=== PATIENT | male | born 1965 | race Caucasian/White ===

== ENCOUNTER 2024-11-04 08:19 | Outpatient (CLI) | payer BC, SELFPAY ==
--- OUTSIDE RECORDS SUMMARY | 2024-11-04 08:25 | XMS_ITS | Data Portability ---
Author Organization [facility] [employer] [employer] Main Office Address [address] [place] [address] Assessment No assessment recorded. Plan of Treatment Reminders Order Date Submit Date Provider Last Modified By Organization Details Last Modified Time Details Appointments None recorded. Lab glycohemog lobin, total, blood [address] (Lab), [address] [place], [address], 4 08:31:37 lipid panel, serum 2023 024 [facility] (Lab), [address] [place], [address], 4 03:28:51 CMP, serum or plasma 2023 024 [facility] (Lab), [address] [place], [address], 4 03:28:51 TSH, serum or plasma [address] (Lab), [address] [place], [address], 4 08:31:37 CBC w/ auto diff [address] (Lab), [address] [place], [address], 4 08:31:37 PSA, total, serum or plasma 2023 [email or web address] (Lab), [address] [place], [address], 4 08:31:36 vitamin D, 25-hydroxy , total, serum 2023 [email or web address] (Lab), [address] [place], [address], 4 08:31:37 Referral None recorded. Procedures None recorded. Surgeries None recorded. Imaging holter monitor - 24 hrs 2024 [place] [facility] [address], [address], 14:24:08 US, echocardio gram, transthora cic, complete - Please call patient to schedule. 2024 [facility] ([facility] Call Scheduling), [address] [place], [address], 5 14:32:36 Medication Orders losartan 50 mg tablet 2024 [facility], [address], [address], 5 08:53:44 Medrol (Zoltan) 4 mg tablets in a dose pack 2023 024 [facility] [address], [address], [address], 5 08:49:28 Depo-Medro l 40 mg/mL suspension for injection 2023 024 Not available 17:00:57 Zithromax Z-Zoltan 250 mg tablet 2023 [facility]24 [email or web address], [address], [address], 4 17:00:38 Flonase Allergy Relief 50 mcg/actuat ion nasal spray,susp ension 2023 024 [facility] [address], [address], [address], 4 08:47:04 cetirizine 10 mg tablet 2023 024 [facility] [address], [address] [place] [address], [address], 4 08:48:04 amlodipine 5 mg tablet 2023 024 [facility] [address], [address] [place] [address], [address], 4 08:47:03 Myrbetriq 25 mg tablet,ext ended release 2023 024 [facility] [address], [address], [address], 4 08:31:14 lisinopril 10 mg tablet 2023 024 [facility] [address], [address], [address], 5 08:48:59 Patient TargetsNo targets recorded. Patient InstructionsNo instructions recorded. Reason for Referral None Reported. Results Created Date Observation Date Name Description Value Unit Range Abnormal Flag Note LastModifiedBy Organization Detail LastModifiedTime Result Notes None recorded. Problems Name Problem SNOMED Code Status Onset Date Resolution Date Notes Provider Name and Address Organization Details Recorded Time Acute bronchiti s 65194491 Completed 10/16/2023 LIBBY Garrison [address] [facility], [facility] [address], [place], [address] , [place] - S MD [employer] [facility] 4 09:05:30 Atopic dermatiti s 11812925 Active Not Available [facility] 3 07:03:17 Chronic low back pain 918818289 Active Not Available [facility] 3 07:03:17 Low back pain 481930199 Active Not Available [facility] 3 07:03:17 Depressiv e disorder 24438694 Active Not Available [facility] 3 07:03:17 Sinusitis 27048608 Active Not Available [facility] 3 07:03:17 Environme ntal allergy 555512808 Active Not Available [facility] 3 07:03:17 Upper respirato ry infection 57380692 Completed 10/16/2023 LIBBY Garrison [address], [place], [address] , [employer] 4 09:05:59 Hyperlipi demia 06295308 Active Not Available [facility] 3 07:03:17 Allergic rhinitis 31441900 Completed 10/16/2023 LIBBY Garrison [address], [address], [place], [address] , [facility] 4 09:05:50 Chronic rhinitis 17202645 Active Not Available [facility] 3 07:03:18 Overactiv e urinary bladder 704583688 Active 2022 Jordan Armando MD [address], [address], [place], [address] , [employer] 3 16:39:02 Acute right otitis media 785055035 Active 2022 Jordan Armando MD [address], [address], [place], [address] , [employer] 3 12:29:11 Impacted cerumen in right ear 95194818726 [address] Active 2022 Jordan Armando MD [address], [address], [place], [address] , [employer] 3 16:40:18 Essential hypertens ion 95810200 Active 2022 Jordan Armando MD [address], [address], [place], [address] , [employer] [facility] 3 16:40:50 Erectile dysfuncti on 687747491 Active 2022 Jordan Armando MD [address], [address], [place], [address] , [employer] [facility] 3 16:41:53 Eczema 78713963 Active 2022 Jordan Armando MD [address], [address], [place], [address] , [employer] [facility] 3 16:55:02 Acute otitis externa 34467069 Completed 202210/16/2023 LIBBY Garrison [address], [address], [place], [address] , [employer] [facility] 4 09:05:28 Acute sinusitis 34031385 Completed 202210/16/2023 LIBBY Garrison [address], [address], [place], [address] , [employer] [facility] 4 13:01:19 Seasonal allergic rhinitis 259334843 Active 2022 Jordan Armando MD [address], [place], [address] , [employer] [facility] 3 16:49:26 Disorder of prostate 23112490 Active 2023 LIBBY Garrison [address], [address], [place], [address] , [employer] [facility] 4 10:20:50 Vitamin D deficienc y 14907249 Active 2023 LIBBY Garrison [address], [place], [address] , [employer] [facility] 4 10:21:32 Obesity 022546480 Active 2023 LIBBY Garrison [address], [place], [address] , [employer] [facility] [address] [facility] 4 10:21:44 Acute sinusitis 33889085 Active 2023 LIBBY Garrison [address], [place], [address] , [facility] [employer] [facility] [place] [employer] 4 13:01:19 Acute otitis media 5772390 Active 2023 LIBBY Garrison [address], [place], [address] , [employer] [facility] [address] [facility] 4 08:41:16 Acute otitis media 3561334 Active 2023 LIBBY Garrison [address], [address], [place], [address] , [employer] [facility] [place] [employer] 4 08:41:20 Palpitati ons 22330028 Active 2024 LIBBY Garrison [address], [place], [address] , [employer] [facility] [address] [facility] 5 08:47:30 Heart murmur 95998862 Active 2024 LIBBY Garrison [address], [place], [address] , [employer] [facility] [address] [facility] 5 08:53:11 Problem Notes None recorded. Procedures Surgical History Date Name Laterality Status Provider Name and Address Organization Details Recorded Time 4 Cerumen Removal completed LIBBY Garrison [address], [place], [address], [facility] [employer] [facility] [address] [facility] 10/16/2023 10:36:31 3 Ear Irrigation completed Jordan Armando MD [address], [place], [address], [facility] [employer] [facility] [address] [employer] 11/08/2022 16:58:47 Imaging Results None recorded. Procedure Notes None recorded. Medical Equipment None Reported. Allergies Allergen ID Allergen Name Allergen Category Reaction Reaction Severity Criticality Documentation Date Start Date Code Code System Note Provider Name and Address Organization Details Recorded Time 42380 Substance with sulfonami de structure and antibacte rial mechanism of action (substanc e) medicatio n Not available Not available Not available 08/17/2022 18447 8003 SNOMED Not Available [facility] 3 07:13:48 38256 Product containin g penicilli n (product) medicatio n Not available Not available Not available 08/17/2022 13542 8001 SNOMED Not Available [facility] 3 07:13:48 Medications Name Sig Start Date Stop Date Status Note LastModified by Organization Details LastModified Time losartan 50 mg tablet TAKE 1 TABLET BY MOUTH ONCE DAILY DIRECTED FOR 30 DAYS active Not Available Not Available No t Available Augmentin 875 mg-125 mg tablet Take 1 tablet every 12 hours by oral route for 10 days. 04/25 completed Not Available Not Available Not Available prednisone 10 mg tablet Take by oral route 4pills daily x 3 days, 3 pills daily x 3 days , 2 pills daily x 3 days and 1 pill daily x 3 days then stop active Not Available Not Available No t Available Depo-Medrol 40 mg/mL suspension for injection Take 2 mL every day by injection route as directed for 1 day. 04/25 completed Not Available Not Available Not Available sildenafil 50 mg tablet TAKE 1 TABLET BY MOUTH NEEDED PRIOR TO INTERCOUR SE 10/15 completed Not Available Not Available Not Available cetirizine 10 mg tablet TAKE 1 TABLET BY MOUTH ONCE DAILY DIRECTED active Not Available Not Available No t Available oxybutynin chloride ER 10 mg tablet,exte nded release 24 hr take 1 tablet by mouth daily active Not Available Not Available No t Available azithromyci n 250 mg tablet TAKE 2 TABLETS BY MOUTH ON DAY 1, AND THEN TAKE 1 TABLET BY MOUTH ONCE A DAY ON DAY 2 THROUGH DAY 5 04/25 completed Not Available Not Available Not Available ibuprofen 800 mg tablet 11/08 completed Not Available Not Available Not Available hydrocodone 5 mg-acetamin ophen 325 mg tablet TAKE 1 TABLET BY MOUTH THREE TIMES DAILY NEEDED FOR PAIN active Not Available Not Available No t Available meloxicam 15 mg tablet TK 1 T PO QD PRF PAIN 03/15 completed Not Available Not Available Not Available Elidel 1 % topical cream APPLY A THIN LAYER TO THE AFFECTED AREA(S) BY TOPICAL ROUTE 2 TIMES PER DAY ; RUB IN GENTLY AND COMPLETEL Y 10/15 completed Not Available Not Available Not Available prednisone 20 mg tablet TAKE 2 TABLETS BY MOUTH ONCE DAILY FOR 5 DAYS 04/07 completed Not Available Not Available Not Available cromolyn 4 % eye drops INSTILL 2 DROPS INTO EACH EYE 4 TIMES DAILY 04/07 completed Not Available Not Available Not Available metronidazo le 500 mg tablet 10/16 completed Not Available Not Available Not Available amlodipine 5 mg tablet TAKE 1 TABLET BY MOUTH ONCE DAILY DIRECTED active Not Available Not Available No t Available ciprofloxac in 500 mg tablet 10/16 completed Not Available Not Available Not Available Tamiflu 75 mg capsule Take 1 capsule twice a day by oral route for 5 days. active Not Available Not Available No t Available hydrocodone 10 mg-acetamin ophen 325 mg tablet TK 1 T PO BID PRF PAIN 10/16 completed Not Available Not Available Not Available triamcinolo ne acetonide 0.1 % topical cream APPLY CREAM EXTERNALL Y TO AFFECTED AREA TWICE DAILY active Not Available Not Available No t Available Depo-Medrol 80 mg/mL suspension for injection Take 1 mL by injection route. 10/15 completed Not Available Not Available Not Available hydrocodone 7.5 mg-acetamin ophen 325 mg tablet 10/16 completed Not Available Not Available Not Available lisinopril 10 mg tablet TAKE 1 TABLET BY MOUTH ONCE DAILY DIRECTED FOR 90 DAYS 10/15 completed Not Available Not Available Not Available gabapentin 300 mg capsule TK 1 C PO TID 03/15 completed Not Available Not Available Not Available montelukast 10 mg tablet TAKE 1 TABLET BY MOUTH ONCE DAILY active Not Available Not Available No t Available Viagra 100 mg tablet TK 1 T PO QD 03/15 completed Not Available Not Available Not Available levofloxaci n 500 mg tablet TAKE 1 TABLET BY MOUTH EVERY 24 HOURS FOR 10 DAYS 04/12 completed Not Available Not Available Not Available methylpredn isolone 4 mg tablets in a dose pack TAKE BY MOUTH DIRECTED ON INSIDE OF PACKAGE 10/15 completed Not Available Not Available Not Available oxybutynin chloride 5 mg tablet Take 2 tablets by mouth once daily 2024 active Not Available Not Available Not Avai lable fluocinonid e 0.05 % topical cream APPLY TO AFFECTED AREA(S) TWICE DAILY 04/07 completed Not Available Not Available Not Available losartan 100 mg tablet Take 1 tablet by mouth once daily 2023 active Not Available Not Available Not Avai lable fluticasone propionate 50 mcg/actuati on nasal spray,suspe nsion USE 1 SPRAY(S) IN EACH NOSTRIL ONCE DAILY NEEDED active Not Available Not Available No t Available doxycycline hyclate 100 mg tablet Take 1 tablet twice a day by oral route. active Not Available Not Available No t Available Ventolin HFA 90 mcg/actuati on aerosol inhaler Inhale 2 puffs every 4 hours by inhalatio n route as needed. active Not Available Not Available No t Available neomycin-po lymyxin-hyd rocort 3.5 mg-10,000 unit/mL-1 % ear drops,susp INSTILL 4 DROPS INTO AFFECTED EAR(S) THREE TIMES DAILY 10/15 completed Not Available Not Available Not Available Lexapro 10 mg tablet Take 1 tablet every day by oral route. active Not Available Not Available No t Available tadalafil 20 mg tablet TAKE 1 TABLET BY MOUTH ONCE DAILY NEEDED 01/02 completed Not Available Not Available Not Available Myrbetriq 25 mg tablet,exte nded release Take 1 tablet every day by oral route as directed for 30 days. 01/02 completed Not Available Not Available Not Available Nasacort 55 mcg nasal spray aerosol Take by nasal route 2 sprays each nostril daily. active Not Available Not Available No t Available Eucrisa 2 % topical ointment APPLY A THIN LAYER TO THE AFFECTED AREA(S) BY TOPICAL ROUTE 2 TIMES PER DAY 04/07 completed Not Available Not Available Not Available Vitals Date Recorded Body height Body mass index (BMI) Body weight Body temperature Heart rate Respiratory rate Oxygen saturation Oxygen saturation in Arterial blood by Pulse oximetry Systolic blood pressure Diastolic blood pressure Provider Name and Address Organization Details Last Updated DateTime 4 175.26 cm 32.4 kg/m2 26669.4 3 g 96.9 [degF] 66 /min 20 /min 99 % 99 % 160 mm[Hg] 90 mm[Hg] Arianna Toro RN [facility] [employer] [facility] 4 09:58:52 Date Recorded Body height Body mass index (BMI) Body weight Body temperature Heart rate Respiratory rate Oxygen saturation Oxygen saturation in Arterial blood by Pulse oximetry Systolic blood pressure Diastolic blood pressure Provider Name and Address Organization Details Last Updated DateTime 4 175.26 cm 31.8 kg/m2 22069.7 1 g 97.9 [degF] 57 /min 20 /min 98 % 98 % 160 mm[Hg] 102 mm[Hg] Arianna Toro RN [facility] [employer] [facility] 4 08:34:12 Date Recorded Body height Provider Name an d Address Organization Details Last Updated DateTime 04/17/2024 175.26 cm Arianna Toro RN [facility] [employer] [facility] 04/17/2024 09:06:16 Date Recorded Body height Body mass index (BMI) Body weight Body temperature Heart rate Oxygen saturation Oxygen saturation in Arterial blood by Pulse oximetry Respiratory rate Systolic blood pressure Diastolic blood pressure Provider Name and Address Organization Details Last Updated DateTime 4 175.26 cm 32 kg/m2 76172.4 g 97.3 [degF] 67 /min 96 % 96 % 24 /min 158 mm[Hg] 100 mm[Hg] Arianna Toro RN [facility] [employer] [facility] 4 17:02:52 Date Recorded Body height Body mass index (BMI) Body weight Body temperature Heart rate Respiratory rate Oxygen saturation Oxygen saturation in Arterial blood by Pulse oximetry Systolic blood pressure Diastolic blood pressure Provider Name and Address Organization Details Last Updated DateTime 5 175.26 cm 32 kg/m2 57057.1 g 97 [degF] 50 /min 20 /min 96 % 96 % 180 mm[Hg] 98 mm[Hg] Arianna Toro RN [facility] [employer] [facility] 5 08:41:13 Social History Question Answer Notes LastModified by Organizat ion Details LastModified Time Tobacco Smoking Status Former Smoker Arianna Toro RN [facility], [facility] 10/16/2023 10:00:00 Do You Have An Advance Directive? No Information not available 01/03/2024 Is Blood Transfusion Acceptable In An Emergency? Yes Information not available 01/03/2024 What Is Your Level Of Caffeine Consumption? Occasional Soda In AM Information not available 10/16/2023 What Is Your Code Status? Full Code Information not available 01/03/2024 In The 14 Days Before Symptom Onset, Have You Had Close Contact With A Laboratory-confi rmed COVID-19 While That Case Was Ill? No Information not available 10/16/2023 In The 14 Days Before Symptom Onset, Have You Had Close Contact With A Person Who Is Under Investigation For COVID-19 While That Person Was Ill? No Information not available 10/16/2023 What Type Of Diet Are You Following? REGULAR Information not available 10/16/2023 Have There Been Any Changes To Your Family Or Social Situation? No Information not available 10/16/2023 Are There Any Guns Present In Your Home? Yes Information not available 01/03/2024 Do You Use Insect Repellent Routinely? No Information not available 01/03/2024 Where Do You Live? [facility] Information not available 10/16/2023 Do You Have A Medical Power Of Field Mechanical Meter Tester? No Information not available 10/16/2023 Do You Have Any Pets? Yes Information not available 10/16/2023 What Is Your Relationship Status? Single Information not available 10/16/2023 Do You Use Your Seat Belt Or Car Seat Routinely? Yes Information not available 10/16/2023 Do You Have Smoke And Carbon Monoxide Detectors In Your Home? Yes Information not available 10/16/2023 Are You Passively Exposed To Smoke? No Information not available 10/16/2023 Are There Any Smokers In Your House? No Information not available 01/03/2024 Do You Participate In Social Media? Yes Information not available 10/16/2023 Do You Use Sunscreen Routinely? No Information not available 01/03/2024 Have You Recently Traveled Abroad? No Information not available 10/16/2023 Sex: Unknown Functional Status Question Answer Note LastModified by Organizat ion Details LastModified Time Do you use any illicit or recreational drugs? No Information not available 01/03/2024 What is your level of alcohol consumption? None Information not available 10/16/2023 Are you currently employed? 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 None works hard Information not available 10/16/2023 Mental Status Question Answer Note LastModified by Organization D etails LastModified Time Do you feel stressed (tense, restless, nervous, or anxious, or unable to sleep at night)? [id number] Information not available 10/16/2023 Family History Nothing Reported. Medical History Condition Response HEART ARRHYTHMIA Y HYPERTENSION Y Immunizations Vaccine Type Date Status Note Provider Nam e and Address Organization Details Recorded Time Tdap 03/15/2017 completed Not Available [facility] 08/17/2022 07:13:40 Past Encounters Encounter ID Performer Location Encounter Start Date Encounter Closed Date Diagnosis/Indication Diagnosis SNOMED-CT Code Diagnosis ICD10 Code Diagnosis Note [id number] Jordan Armando MD [facility] [place] [address] [place] [address] 04/01/2021 00:00:00 04/01/2021 21:29:55 [id number] Jordan Armando MD [facility] [place] [address] [place] [address] 04/05/2022 00:00:00 04/06/2022 05:41:30 [id number] Jordan Armando MD [facility] [place] [address] [place] [address] 11/08/2022 16:25:46 11/08/2022 17:03:24 Impacted cerumen in right ear 0309340347 453066 H61.21 irrigated right ear. Essential hypertension 96619775 I10 Continue BP meds. watch salt in diet. Erectile dysfunction 860 174673 F52.21 Eczema 33689259 L30.9 [id number] Jordan Armando MD [facility] [address] [place] [address] 04/12/2023 16:24:25 04/12/2023 17:14:40 Seasonal allergic rhinitis 469797243 J30.2 Take montelukas t and zyrtec [id number] Cristino Sawyer MD [address] [address] 10/16/2023 09:47:55 10/16/2023 10:42:13 Essential hypertension 16622726 I10 Overactive urinary bladder 422823721 N32.81 Screening for malignant neoplasm of prostate 818135593 Z12.5 Vitamin D deficiency 347 [address]059 E55.9 Obesity 842515363 E66.9 [id number] Cristino Sawyer MD [address] [address] 01/03/2024 08:21:38 01/03/2024 09:07:30 Acute otitis media 6813127 H66.93 Essential hypertension 12834908 I10 [id number] Cristino Sawyer MD [address] [address] 04/17/2024 08:30:53 04/17/2024 09:08:58 Seasonal allergic rhinitis 104277891 J30.2 [id number] Crisitno Sawyer MD [address] [address] 04/25/2024 16:55:48 04/25/2024 17:42:00 Acute sinusitis 32547393 J01.90 Zyrtec, flonase, medrol, and tylenol for symptom management . Given yellow-gre en nasal discharge, could also be bacterial sinusitis. If symptoms do not improve in 4 days, patient can call back and will prescribe augmentin. [id number] Ileana LIBBY Gonzalez [facility] [address] [address] 10/15/2024 08:31:02 10/15/2024 08:55:57 Palpitations 21636776 R00.2 New onset, most commonly in the morning. Daily x the last 2 weeks Essential hypertension 28399246 I10 Uncontroll ed, pt states he has not been taking losartan. Heart murmur 86662060 R0 1.1 New onset Health Concerns Section Related Observation LastModified by Organization Detai ls LastModified Time None Recorded Concern Status LastModified by Organization Details LastModified Time None Recorded Advance Directives Directive N: Payers Encounter Date Sequence Insurance Name Policy Number Policy Mulligan Covered Member ID Mulligan Member ID Guarantor Name 10/16/2023 1 [place] [id number] Hitesh D Walker [id number] Hitesh D Walker 01/03/2024 1 [place] [id number] Hitesh D Walker [id number] Hitesh D Walker 04/17/2024 1 [place] [id number] Hitesh D Walker [id number] Hitesh D Walker 04/25/2024 1 [place] [id number] Hitesh D Walker [id number] Hitesh D Walker 10/15/2024 1 [place] [id number] Hitesh D Walker [id number] Hitesh D Walker Notes Date Note Type Note Provider Name and Address Organization Details Recorded Time 10/16/2023 text/html Hitesh Donnelly i s a 58 year old male patient here to transition care. He was previously under the care of Dr. Armando. His past medical history is significant for hypertension. His BP on arrival today is 160/90. He does not monitor his BP readings at home. His is currently taking losartan 100 mg PO daily. He declines headaches, light-headedness, dizziness. He has overactive bladder. He takes oxybutynin chloride 10 mg PO daily. He states that this medication is ineffective. He is bothered most in the morning. He states that he has a difficult time initiating a stream of urine and urinates for minutes at a time. He has chronic back pain, he saw a back doctor in the past that left the practice. He had surgery in 2017 to remove two lumps . He would not like to see another provider at this time. He has a history of erectile dysfunction, he keeps tadalfil 20 mg on hand and takes as needed. He struggles with seasonal allergies. He is taking montelukast 10 mg PO daily, and occasionally receives Depo-medrol injection. He has a history of eczema. He has triamcinolone 0.1% on hand. He has custody of his 7 year old son. Flu shot: declinesCOVID vaccine: declinesTdap: 02/2017Shingles: declinesPSA:Colonos copy: cologuamart (07/23/2023) negative LIBBY Garrison [address], [facility] [address], [place], [address], [place] 10/16/2023 10:38:03 01/03/2024 text/html Hitesh Donnelly i s a 58 year old male patient here today to discuss a possible ear right infection. He states that last week he had some sinus drainage which has stopped but he now has right ear pain. He still has elevated blood pressure. We started lisinopril at his last visit and he has not had any improvement in blood pressure. We will stop lisinopril and start amlodipine. [facility] [address] [facility] [address], [place], [address], [place] 01/03/2024 08:52:09 04/25/2024 text/html Hitesh Donnelly i s a 59 year old male here today for a sick visit. He describes congestion and cough starting 4 days ago. Has had yellow-green nasal discharge. His son had symptoms 1.5 weeks ago. His symptoms have continued to worsen. He had a fever and chills overnight overnight and had headaches. He has been taking Vitamin C and ibuprofen with little improvement. He has no other concerns today. LIBBY Garrison [address], [address], [place], [address], [place] 04/25/2024 17:38:38 10/15/2024 text/html Hitesh Donnelly i s a 59 year old male patient here today to FU on BP Concerns with elevated blood pressure. He does talk his blood pressure at [facility], states the machine will read high . Notes that his heart is racing in the mornings, on Monday this lasted for 15 minutes. He has no other symptoms when this occurs. He did have some chest pain during the long episode. Ileana Gonzalez, GLASS SILVERER [address] [facility], [facility] [address], [place], [address], [place] - [facility] 10/15/2024 16:42:01
--- OUTSIDE RECORDS SUMMARY | 2024-11-04 08:25 | XMS_ITS | Clinical Summary ---
Author Organization [facility] Address [address] [facility] [place] [address] Care Team Providers Care Ship Superintendent Name Role Phone Jordan Ahn MD Primary Care Provider [phone] Allergies Active Allergy Reactions Criticality Noted Date Comments Penicillins Rash Low 03/13/2019 Medications oxybutynin 5 MG tablet Take 10 mg by mouth daily. 4 02/17/2019 Active hydrocodone-acet aminophen 5-325 MG tablet Take 1 tablet by mouth 3 (three) times daily as needed. FOR PAIN 0 02/22/2019 Active Cetirizine HCl (ZYRTEC ALLERGY) 10 MG Cap Take 1 tablet by mouth daily. 30 capsule 03/13/2019 Active cromolyn 4 % ophthalmic solution Place 2 drops into both eyes 4 (four) times daily. 10 mL 03/24/2019 Active Social History Tobacco Use Types Packs/Day Years Used Date Smoking Tobacco: Never Smokeless Tobacco: Never Alcohol Use Standard Drinks/Week Comments No 0 (1 standard drink = 0.6 oz pur e alcohol) AUDIT-C Answer Date Recorded Frequency of Alcohol Consumption Never 03/13/2019 Average Number of Drinks Not on file 019 Frequency of Binge Drinking Not on file 02/18 Sex and Gender Information Value Date Recorded Sex Assigned at Not on file Legal Sex Male 8:21 PM CDT Gender Identity Not on file Sexual Orientation Not on file Last Filed Vital Signs Vital Sign Reading Time Taken Comments Blood Pressure 139/76 03/24/2019 6:50 PM CDT Pulse 69 03/24/2019 6:50 PM CDT Temperature 36.9 C (98.4 F) 03/24/2019 6:50 PM CDT Respiratory Rate 18 03/24/2019 6:50 PM CDT Oxygen Saturation 96% 03/24/2019 6:50 PM CDT Inhaled Oxygen Concentration - - Weight 93 kg (205 lb) 03/24/2019 6:50 PM CDT Height 175.3 cm (5' 9 ) 03/24/2019 6:50 PM CDT Body Mass Index 30.27 03/24/2019 6:50 PM CDT Plan of Treatment Health Maintenance Due Date Last Done Comments Colorectal Cancer Screening Colonoscopy (10 Years) 1965 Annual Physical 1966 Hepatitis C 1981 DTaP, Tdap and Td Vaccines ( 1 - Tdap) 1982 Pneumococcal Vaccine: 50+ Ye ars (1 of 1 - PCV) 2013 Zoster Vaccines (1 of 2) 2013 COVID-19 Vaccine ( - 2023-2 5 season) 2024 RSV Immunization or 60+ Years (1 - 1-dose 75+ series) 2038 Meningococcal B Vaccine Aged Out No l onger eligible based on patient's age to complete this topic Meningococcal Vaccine Aged Out No desire oren eligible based on patient's age to complete this topic RSV Immunizations Under 20 Months Aged Out No longer eligible based on patient's age to complete this topic Insurance Care Teams Ship Superintendent Relationship Specialty Start Date End Date Jordan Ahn MD [address] [id number] PCP - General FAMILY PRACTICE 03/13/19
--- OUTSIDE RECORDS SUMMARY | 2024-11-04 08:25 | XMS_ITS | Continuity of Care Document ---
Author Organization [facility] Address [address] [place] [address] Phone Care Team Providers Care Programs Assistant Name Role Phone Darinel Calvo Unavailable Unavailable Advance Directives Directive Yes / No Effective Date File Name No Information Encounters Encounter Description Practice Location Reason(s) For Visit Diagnoses Date Provider Providers Copied on Encounter [facility], [address], [place], [place], [id number], [place] tel:[phone] [facility] No Information [address] , [address], [place], [address], [place]. tel:[phone] Family History Family Member Type Diagnosis Age At Onset No Information Payers Payer name Insurance type Covered alliance party ID Authoriza tion(s) [employer] [id number] Social History Type Description Quantity Date Captured Comments Sex Male Smoking Status No Information Chief Complaint And Reason For Visit No Information Reason For Referral Reason For Referral No Information History Of Present Illness Encounter Date Complaint History Of Prese nt Illness No Information Functional Status Date Functional Assessmen t No Information Instructions Date Instruction Additional Infor mation No Information Assessments Type Assessment Date No Information Patient Care Teams Name Effective Dates (start - stop) Status Members No Information
--- NOTE | 2024-11-13 15:33 | WPDHOLTEREM ---
Holter/Event Monitor Holter/Event Monitor Date of procedure: 11/04/24 Holter/Event Procedure: 3-7 Day Holter Monitor Indications: Palpitations Conclusion: 1. 4 days holter monitor on 11/04/24. 2. Predominant rhythm is sinus rhythm. HR range 45-156 bpm; average HR 67 bpm. HR at 45 bpm was on 11/05/24 at 5:17 am. 3. There are rare premature supraventricular complexes and rare supraventricular couplets. There are 6 episodes of supraventricular tachycardia with fastest at 156 bpm and longest lasting 10 seconds. 4. There are rare premature ventricular complexes and rare ventricular couplets. No ventricular tachycardia. 5. No significant pauses greater than 3 seconds. 6. Patient reports 3 episodes of symptoms of irregular beats demonstrate sinus rhythm, HR range 52-63 bpm with 1 episode with PAC.
== END 2024-11-04 08:20 | disposition home or self-care (01) ==
DX: R00.2 Palpitations (principal)
CPT/HCPCS: 93242

== ENCOUNTER 2024-11-26 14:26 | Outpatient (CLI) | payer BC, SELFPAY ==
--- NOTE | 2024-11-26 | ECHO_ITS ---
Patient Info Name: Hitesh Donnelly Age: 59 years : 1965 Gender: Male Ht: 69 in Wt: 218 lbs BSA: 2.23 m2 HR: 60 bpm BP: 135 / 74 mmHg Heart Rhythm: Sinus Rhythm Technical Quality: Good Exam Date: 11/26/2024 2:48 PM Patient Status: unknown Admit Date: 11/26/2024 Exam Type: CA echo doppler color flow Complete two-dimensional, color flow and Doppler transthoracic echocardiogram is performed. Program Advocate: Cassie Willingham Attending Provider: Ileana Gonzalez Summary 1. Complete two-dimensional, color flow and Doppler transthoracic echocardiogram is performed. 2. Left ventricular chamber dimension is normal. 3. Left ventricular systolic function is normal, estimated at 60-65. 4. There is no increased left ventricular wall thickness. 5. The left ventricular diastolic function is normal. 6. Left atrial chamber dimension is mildly enlarged. 7. There is mild aortic valve regurgitation. 8. There is mild mitral valve regurgitation. 9. Mild pulmonary hypertension, estimated pulmonary arterial systolic pressure is 40 mmHg. 10. There is mild pulmonic regurgitation. Left Ventricle Left ventricular chamber dimension is normal. Left ventricular systolic function is normal, estimated at 60-65. There is no increased left ventricular wall thickness. The left ventricular diastolic function is normal. Right Ventricle Right ventricular chamber dimension is normal. Right ventricular systolic function is normal. Left Atria Left atrial chamber dimension is mildly enlarged. Right Atria Right atrial chamber dimension is normal. Atrial Septum Intact interatrial septum visualized by Doppler imaging. Aortic Valve The aortic valve is trileaflet. There is mild aortic valve sclerosis. There is no aortic valve stenosis. There is mild aortic valve regurgitation. Pulmonic Valve The pulmonic valve is normal. There is no pulmonic valve stenosis. There is mild pulmonic regurgitation. Mitral Valve The mitral valve has normal leaflets. There is no mitral valve stenosis. There is mild mitral valve regurgitation. Tricuspid Valve The tricuspid valve leaflets are normal. There is no significant tricuspid valve stenosis. There is mild tricuspid valve regurgitation. Mild pulmonary hypertension, estimated pulmonary arterial systolic pressure is 40 mmHg. Pericardium/Pleural The pericardium appears normal. There is no pericardial effusion. Inferior Vena Cava Normal inferior vena cava with >50% collapse upon inspiration consistent with normal right atrial pressure, 10 mmHg. Aorta The aortic root size at the sinus of Valsalva is normal. Left Ventricular Outflow Tract Name Value Normal LVOT 2D LVOT Diameter 2.0 cm LVOT Doppler LVOT Peak Velocity 93 cm/s LVOT Peak Gradient 3 mmHg LVOT Mean Gradient 1 mmHg LVOT VTI 19 cm LVOT VTI/AV VTI Ratio 0.6 LVOT Stroke Volume 61 ml LVOT CO 3.5 l/min LVOT CI 1.6 l/min/m2 Pulmonic Valve Name Value Normal RVOT Doppler RVOT Peak Velocity 76 cm/s RVOT Peak Gradient 2 mmHg PV Doppler PV Peak Velocity 144 cm/s PV Peak Gradient 8 mmHg Mitral Valve Name Value Normal MV Diastolic Function MV E Peak Velocity 95 cm/s MV A Peak Velocity 68 cm/s MV E/A 1.4 MV Decel Time (PW) 143 ms MV Annular TDI MV E/e' (Septal) 12.2 MV E/e' (Lateral) 7.6 MV E/e' (Average) 9.9 Tricuspid Valve Name Value Normal TV Regurgitation Doppler TR Peak Velocity 275 cm/s TR Peak Gradient 30 mmHg Estimated PAP/RSVP RA Pressure 10 mmHg <=5 PA Systolic Pressure 40 mmHg <36 RV Systolic Pressure 40 mmHg <36 TV Annular TDI TV Lateral Jayne s' Velocity 16.1 cm/s >=9.5 Aorta Name Value Normal Ascending Aorta Ao Root Diameter (MM) 2.9 cm Ao Root Diam Index (MM) 1.3 cm/m2 Aortic Valve Name Value Normal AV Doppler AV Peak Velocity 162 cm/s AV Peak Gradient 11 mmHg AV Mean Gradient 4 mmHg AV VTI 30 cm AV Area (Cont Eq VTI) 2.1 cm2 >=3.0 AV Area (Cont Eq Otf) 1.9 cm2 AV DI (Otf) 0.57 AV Regurgitation 2D LVOT Area 3.3 cm2 Ventricles Name Value Normal LV Dimensions 2D/MM IVS Diastolic Thickness (2D) 0.9 cm 0.6-1.0 LVID Diastole (2D) 5.6 cm 4.2-5.8 LVIW Diastolic Thickness (2D) 0.9 cm 0.6-1.0 LVID Systole (2D) 2.8 cm 2.5-4.0 LVOT Diameter 2.0 cm LV Mass (2D Cubed) 190.78 g 88.00-224.00 LV Mass Index (2D Cubed) 86 g/m2 49-115 Relative Wall Thickness (2D) 0.34 <=0.42 LV Fractional Shortening/Ejection Fraction 2D/MM LV Fractional Shortening (2D) 49 % 25-43 LV EF (2D Teichholz) 80 % LV Diastolic Volume (4C MOD) 99 ml LV EF (4C MOD) 65 % LV Diastolic Volume (2C MOD) 92 ml LV EF (2C MOD) 64 % LV Diastolic Volume (BP MOD) 97 ml 62-150 LV Diastolic Volume Index (BP MOD) 44 ml/m2 34-74 LV Systolic Volume (BP MOD) 34 ml 21-61 LV Systolic Volume Index (BP MOD) 15 ml/m2 11-31 LV EF (BP MOD) 65 % 52-72 LV Diastolic Length (4C) 8.2 cm LV Systolic Length (4C) 6.6 cm LV Stroke Volume (4C MOD) 65 ml Atria Name Value Normal LA Dimensions LA Dimension (MM) 4.6 cm 3.0-4.0 LA Volume (4C A-L) 65 ml LA Volume (BP A-L) 65 ml RA Dimensions RA Area (4C) 14.2 cm2 <=18.0 Report Signatures
--- OUTSIDE RECORDS SUMMARY | 2024-11-26 15:58 | XMS_ITS | Data Portability ---
Author Organization [facility] [employer], Main Office Address [address] [place] [address] Assessment No assessment recorded. Plan of Treatment Reminders Order Date Submit Date Provider Last Modified By Organization Details Last Modified Time Details Appointments None recorded. Lab glycohemog lobin, total, blood [address] (Lab), [address] [place], [address], 4 08:31:37 lipid panel, serum 2023 024 [facility] (Lab), [address] [place], [address], 4 03:28:51 CMP, serum or plasma 2023 024 [facility] (Lab), [address] [place], [address], 4 03:28:51 TSH, serum or plasma [address] (Lab), [address] [place], [address], 4 08:31:37 CBC w/ auto diff [address] (Lab), [address] [place], [address], 4 08:31:37 PSA, total, serum or plasma [address] (Lab), [address] [place], [address], 4 08:31:36 vitamin D, 25-hydroxy , total, serum [address] (Lab), [address] [place], [address], 4 08:31:37 Referral None recorded. Procedures None recorded. Surgeries None recorded. Imaging holter monitor - 24 hrs [address] (Cardiology & Emg), [address] [place] [address], [address], 08:54:50 US, echocardio gram, transthora cic, complete - Please call patient to schedule. 2024 [facility] (Cardiology & Emg), [address] [place] [address], [address], 5 12:30:37 Medication Orders losartan 50 mg tablet 2024 [facility] [address], [address], [address], 5 08:53:44 Medrol (Zoltan) 4 mg tablets in a dose pack 2023 [facility] 435, [address], [address], 5 08:49:28 Depo-Medro l 40 mg/mL suspension for injection 2023 [place] [address] Not available 17:00:57 Zithromax Z-Zoltan 250 mg tablet [address] [facility] [address], [id number] [place] [address], [address], 4 17:00:38 Flonase Allergy Relief 50 mcg/actuat ion nasal spray,susp ension 2023 024 [facility] [address], [id number] [place] [address], [address], 4 08:47:04 cetirizine 10 mg tablet 2023 024 [facility] [address], [id number] [place] [address], [address], 4 08:48:04 amlodipine 5 mg tablet 2023 024 [facility] [address], [id number] [place] [address], [address], 4 08:47:03 Myrbetriq 25 mg tablet,ext ended release [address] [facility] [address], [id number] [place] [address], [address], 4 08:31:14 lisinopril 10 mg tablet 2023 024 [facility] [address], [id number] [place] [address], [address], 5 08:48:59 Patient TargetsNo targets recorded. Patient InstructionsNo instructions recorded. Reason for Referral None Reported. Results Created Date Observation Date Name Description Value Unit Range Abnormal Flag Note LastModifiedBy Organization Detail LastModifiedTime 11/15/19 25 11/04/2024 dany r monit or No observ ation record ed. [address] (Cardiology & Emg) 7430 [facility] [address], [place], [address], 11/15/2024 10:26:25 Result Notes None recorded. Problems Name Problem SNOMED Code Status Onset Date Resolution Date Notes Provider Name and Address Organization Details Recorded Time Acute bronchiti s 83798504 Completed 10/16/2023 LIBBY Garrison [address], [place], [address] , [employer] 4 09:05:30 Atopic dermatiti s 81610539 Active Not Available [facility] 3 07:03:17 Chronic low back pain 414007459 Active Not Available [facility] 3 07:03:17 Low back pain 739563551 Active Not Available [facility] 3 07:03:17 Depressiv e disorder 59940251 Active Not Available [facility] 3 07:03:17 Sinusitis 73206001 Active Not Available [facility] 3 07:03:17 Environme ntal allergy 595621075 Active Not Available [facility] 3 07:03:17 Upper respirato ry infection 92622294 Completed 10/16/2023 LIBBY Garrison [address], [place], [address] , [employer] 4 09:05:59 Hyperlipi demia 32725314 Active Not Available [facility] 3 07:03:17 Allergic rhinitis 41362581 Completed 10/16/2023 LIBBY Garrison [address], [address], [place], [address] , [employer] 4 09:05:50 Chronic rhinitis 33448222 Active Not Available [facility] 3 07:03:18 Overactiv e urinary bladder 841386155 Active 2022 Jordan Armando MD [address], [address], [place], [address] , [employer] 3 16:39:02 Acute right otitis media 455329198 Active 2022 Jordan Armando MD [address], [place], [address] , [employer] 3 12:29:11 Impacted cerumen in right ear 15293281186 55263 Active 2022 Jordan Armando MD [address], [address], [place], [address] , [facility] 3 16:40:18 Essential hypertens ion 62517278 Active 2022 Jordan Armando MD [address], [address], [place], [address] , [facility] 3 16:40:50 Erectile dysfuncti on 569451733 Active 2022 Jordan Armando MD [address], [address], [place], [address] , [facility] 3 16:41:53 Eczema 40805462 Active 2022 Jordan Armando MD [address], [address], [place], [address] , [facility] 3 16:55:02 Acute otitis externa 21722242 Completed 202210/16/2023 LIBBY Garrison [address], [place], [address] , [facility] 4 09:05:28 Acute sinusitis 71155894 Completed 202210/16/2023 LIBBY Garrison [address], [address], [place], [address] , [facility] 4 13:01:19 Seasonal allergic rhinitis 781087006 Active 2022 Jordan Armando MD [address], [address], [place], [address] , [facility] 3 16:49:26 Disorder of prostate 11840361 Active 2023 LIBBY Garrison [address], [place], [address] , [facility] 4 10:20:50 Vitamin D deficienc y 07366289 Active 2023 LIBBY Garrison [address], [address], [place], [address] , [facility] 4 10:21:32 Obesity 694398016 Active 2023 LIBBY Garrison [address], [place], [address] , [facility] [employer] 4 10:21:44 Acute sinusitis 45989820 Active [address], [place], [address] , [facility] [employer] 4 13:01:19 Acute otitis media 9309691 Active [address], [place], [address] , [facility] [employer] 4 08:41:16 Acute otitis media 8457609 Active 2023 LIBBY Garrison [address], [place], [address] , [facility] 4 08:41:20 Palpitati ons 36751061 Active [address], [place], [address] , [facility] 5 08:47:30 Heart murmur 24747898 Active [address], [place], [address] , [facility] 5 08:53:11 Problem Notes None recorded. Procedures Surgical History Date Name Laterality Status Provider Name and Address Organization Details Recorded Time 4 Cerumen Removal completed LIBBY Garrison [address], [place], [address], [facility] [employer] [facility] 10/16/2023 10:36:31 3 Ear Irrigation completed Jordan Armando MD [address], [place], [address], [facility] [employer] [facility] 11/08/2022 16:58:47 Imaging Results None recorded. Procedure Notes None recorded. Medical Equipment None Reported. Allergies Allergen ID Allergen Name Allergen Category Reaction Reaction Severity Criticality Documentation Date Start Date Code Code System Note Provider Name and Address Organization Details Recorded Time 18488 Substance with sulfonami de structure and antibacte rial mechanism of action (substanc e) medicatio n Not available Not available Not available 08/17/2022 90868 8003 SNOMED Not Available [facility] 3 07:13:48 35468 Product containin g penicilli n (product) medicatio n Not available Not available Not available 08/17/2022 55795 8001 SNOMED Not Available [facility] 3 07:13:48 Medications Name Sig Start Date Stop Date Status Note LastModified by Organization Details LastModified Time losartan 50 mg tablet TAKE 1 TABLET BY MOUTH ONCE DAILY DIRECTED FOR 30 DAYS 2024 active Not Available Not Available Not Avai lable Augmentin 875 mg-125 mg tablet Take 1 [...] Available Not Available montelukast 10 mg tablet Take 1 tablet by mouth once daily 2024 active Not Available Not Available Not Avai lable Viagra 100 mg tablet TK 1 T [...] Updated DateTime 4 175.26 cm 32.4 kg/m2 81115.4 3 g 96.9 [degF] 66 /min 20 /min 99 % 99 % 160 mm[Hg] 90 mm[Hg] Arianna Toro RN [facility] [employer] [facility] 4 09:58:52 Date Recorded Body height Body mass index (BMI) Body weight Body temperature Heart rate Respiratory rate Oxygen saturation Oxygen saturation in Arterial blood by Pulse oximetry Systolic blood pressure Diastolic blood pressure Provider Name and Address Organization Details Last Updated DateTime 5 175.26 cm 32 kg/m2 98428.1 g 97 [degF] 50 /min 20 /min 96 % 96 % 180 mm[Hg] 98 mm[Hg] Arianna Toro RN [facility] [employer] [facility] 5 08:41:13 Date Recorded Body height Body mass index (BMI) Body weight Body temperature Heart rate Respiratory rate Oxygen saturation Oxygen saturation in Arterial blood by Pulse oximetry Systolic blood pressure Diastolic blood pressure Provider Name and Address Organization Details Last Updated DateTime 4 175.26 cm 31.8 kg/m2 85391.7 1 g 97.9 [degF] 57 /min 20 /min 98 % 98 % 160 mm[Hg] 102 mm[Hg] Arianna Toro RN [facility] [employer] [facility] 4 08:34:12 Date Recorded Body height Provider Name an d Address Organization Details Last Updated DateTime 04/17/2024 175.26 cm Arianna Toro RN [facility] [employer] [facility] 04/17/2024 09:06:16 Date Recorded Body height Body mass index (BMI) Body weight Body temperature Heart rate Oxygen saturation Oxygen saturation in Arterial blood by Pulse oximetry Respiratory rate Systolic blood pressure Diastolic blood pressure Provider Name and Address Organization Details Last Updated DateTime 4 175.26 cm 32 kg/m2 01662.4 g 97.3 [degF] 67 /min 96 % 96 % 24 /min 158 mm[Hg] 100 mm[Hg] Arianna Toro RN [facility] [employer] [facility] 17:02:52 Social History Question Answer Notes LastModified by Organizat ion Details LastModified Time Tobacco Smoking Status Former Smoker Airanna Toro RN [facility], [facility] [employer] [facility] 10/16/2023 10:00:00 Do You Have An Advance [...] not available 01/03/2024 Where Do You Live? [facility] Information not available 10/16/2023 Do You Have A Medical Power Of Air Defense Specialist? 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 None works hard Information not available 10/16/2023 Mental Status Question Answer Note LastModified by Organization D etails LastModified Time Do you feel stressed (tense, restless, nervous, or anxious, or unable to sleep at night)? [id number] Information not available 10/16/2023 Family History Nothing Reported. Medical History Condition Response HEART ARRHYTHMIA Y HYPERTENSION Y Immunizations Vaccine Type Date Status Note Provider Nam e and Address Organization Details Recorded Time Tdap 03/15/2017 completed Not Available [facility] 08/17/2022 07:13:40 Past Encounters Encounter ID Performer Location Encounter Start Date Encounter Closed Date Diagnosis/Indication Diagnosis SNOMED-CT Code Diagnosis ICD10 Code Diagnosis Note [id number] Jordan Armando MD [facility] [address] [place] [id number] 04/01/2021 00:00:00 04/01/2021 21:29:55 [id number] Jordan Armando MD [facility] [place] [id number] 04/05/2022 00:00:00 04/06/2022 05:41:30 [id number] Jordan Armando MD [facility] [address] [facility] [place] [address] 11/08/2022 16:25:46 11/08/2022 17:03:24 Impacted cerumen in right ear 9966123211 899607 H61.21 irrigated right ear. Essential hypertension 24825404 I10 Continue BP meds. watch salt in diet. Erectile dysfunction 860 270445 F52.21 Eczema 07578483 L30.9 [id number] Jordan Armando MD [facility] miriam [address] [facility] [place] [address] 04/12/2023 16:24:25 04/12/2023 17:14:40 Seasonal allergic rhinitis 838886700 J30.2 Take montelukas t and zyrtec [id number] Cristino Sawyer MD [address] [address] 10/16/2023 09:47:55 10/16/2023 10:42:13 Essential hypertension 72826287 I10 Overactive urinary bladder 752912832 N32.81 Screening for malignant neoplasm of prostate 583210515 Z12.5 Vitamin D deficiency 347 [address] E55.9 Obesity 691198249 E66.9 [id number] Cristino Sawyer MD [address] [address] 01/03/2024 08:21:38 01/03/2024 09:07:30 Acute otitis media 9017117 H66.93 Essential hypertension 36467888 I10 [id number] Cristino Sawyer MD [address] [address] 04/17/2024 08:30:53 04/17/2024 09:08:58 Seasonal allergic rhinitis 939589813 J30.2 [id number] Cristino Sawyer MD [facility] [address] [address] 04/25/2024 16:55:48 04/25/2024 17:42:00 Acute sinusitis 08094383 J01.90 Zyrtec, flonase, medrol, and tylenol for symptom management . Given yellow-gre en nasal discharge, could also be bacterial sinusitis. If symptoms do not improve in 4 days, patient can call back and will prescribe augmentin. [id number] LIBBY Garrison [facility] [address] 10/15/2024 08:31:02 10/15/2024 08:55:57 Palpitations 99376313 R00.2 New onset, most commonly in the morning. Daily x the last 2 weeks Essential hypertension 17428606 I10 Uncontroll ed, pt states he has not been taking losartan. Heart murmur 84045063 R0 1.1 New onset Health Concerns Section Related Observation LastModified by Organization Detai ls LastModified Time None Recorded Concern Status LastModified by Organization Details LastModified Time None Recorded Advance Directives Directive N: Payers Encounter Date Sequence Insurance Name Policy Number Policy Mulligan Covered Member ID Mulligan Member ID Guarantor Name 10/16/2023 1 [employer] [id number] Hitesh D Walker [id number] Hitesh D Walker 01/03/2024 1 [employer] [id number] Hitesh D Walker [id number] Hitesh D Walker 04/17/2024 1 [employer] [id number] Hitesh D Walker [id number] Hitesh D Walker 04/25/2024 1 [employer] [id number] Hitesh D Walker [id number] Hitesh D Walker 10/15/2024 1 [employer] [id number] Hitesh D Walker [id number] Hitesh D Walker Notes Date Note Type Note Provider Name and Address Organization Details Recorded Time 10/16/2023 text/html Hitesh Andrzej i s a 58 year old male [...] had surgery in 2017 to remove two lumps. He would not like to see another [...] copy: cologuamart (07/23/2023) negative LIBBY Garrison [address] [facility], [place] [address], [place], [address], [employer] 10/16/2023 10:38:03 01/03/2024 text/html Hitesh Donnelly i [...] lisinopril and start amlodipine. LIBBY Garrison [address] [facility] [address], [place], [address], [employer] 01/03/2024 08:52:09 04/25/2024 text/html Hitesh Donnelly i [...] other concerns today. LIBBY Garrison [address], [place], [address], [employer] [facility] 04/25/2024 17:38:38 10/15/2024 text/html Hitesh Donnelly i s a 59 year old male patient here today to FU on BP Concerns with elevated blood pressure. He does talk his blood pressure at [facility], states the machine will read high. Notes that his heart is racing in the mornings, on Monday this lasted for 15 minutes. He has no other symptoms when this occurs. He did have some chest pain during the long episode. LIBBY Garrison [address], [place], [address], [email or web address] 10/15/2024 16:42:01
--- OUTSIDE RECORDS SUMMARY | 2024-11-26 15:58 | XMS_ITS | Continuity of Care Document ---
Author Organization [facility] Address [address] [place] [address] Phone Care Team Providers Care Speech Language Pathologist Prn Name Role Phone Darinel Calvo Unavailable Unavailable Advance Directives Directive Yes / No Effective Date File Name No Information Encounters Encounter Description Practice Location Reason(s) For Visit Diagnoses Date Provider Providers Copied on Encounter [facility], [address], [place], [place], [id number], [place] tel:[phone] [facility] No Information [address] , [address], [place], [address], [place]. tel:[phone] Family History Family Member Type Diagnosis Age At Onset No Information Payers Payer name Insurance type Covered green party ID Authoriza tion(s) [employer] [id number] Social History Type Description Quantity Date Captured [...]
== END 2024-11-26 14:27 | disposition home or self-care (01) ==
LOC: ANHCARD 14:30
DX: R01.1 Cardiac murmur, unspecified (principal); I27.20 Pulmonary hypertension, unspecified; I08.3 Combined rheumatic disorders of mitral, aortic and tricuspid valves
CPT/HCPCS: 93306